=== PATIENT | female | born 1985 | race Caucasian/White ===

== ENCOUNTER → 2017-01-27 | Outpatient (CLI) | payer BC ==
--- NOTE | 2017-01-27 12:45 | Diagnostic Imaging Report ---
EXAMINATION: Bilateral breast diagnostic mammogram with a Computer Aided Detection (CAD) system. INDICATION: Nodule in the outer aspect of the right breast. FINDINGS: There are scattered fibroglandular densities. There is an asymmetry along the outer aspect of the right breast which is evaluated with focal compression views and demonstrates spread out of the underlying asymmetry, compatible with summation artifact of parenchyma. Slight asymmetry is also seen near the area of thickening in the lateral periareolar aspect with no definitive underlying lesion. The left breast demonstrates scattered fibroglandular densities with no focal mass. IMPRESSION: Asymmetries near the area of thickening in the lateral periareolar region in the right breast and in the more far lateral aspect are likely related to summation artifact of parenchyma. An ultrasound evaluation is pending. ACR BI-RADS Category 0: Incomplete. (Needs additional imaging evaluation). Result letter will be mailed to the patient. Note: At least 10% of breast cancer is not imaged by mammography. Dictated by: Dictated on workstation # [id number]
--- NOTE | 2017-01-27 14:29 | Diagnostic Imaging Report ---
EXAMINATION: Right breast ultrasound. INDICATION: Lateral periareolar thickening. Asymmetry seen on mammography. FINDINGS: The outer aspect of the right breast demonstrates no underlying abnormality including the palpable area and the entire outer aspect of the right breast and retroareolar region. IMPRESSION: Negative study. The asymmetries seen on mammography appear to be related to summation artifact of parenchyma. Clinical followup is recommended. If symptoms persist, then followup studies in a few months or further evaluation with an MRI could be considered. ACR BI-RADS Category 1: Negative. Dictated by: Dictated on workstation # [id number]
== END ==
LOC: RAD 08:42
PROVIDERS: ATTEND Obstetrics & Gynecology
DX: R92.8 Other abnormal and inconclusive findings on diagnostic imaging of breast (principal)
CPT/HCPCS: 77066

== ENCOUNTER 2017-02-16 05:34 | Outpatient (CLI) | payer BC ==
[~2017-02-16] VITALS: Ht 152.4 cm; Wt 63.5 kg
[2017-02-16] MEDS ORDERED: ELUX75TA PO (11:03)
[2017-02-16] MEDS ORDERED: OMEP20TA33 PO (11:03)
[2017-02-16] MEDS ORDERED: LEVO112T2 PO (11:03)
== END 2017-02-16 11:11 ==
LOC: PREOP 05:34
PROVIDERS: ATTEND Surgery
DX: Z01.818 Encounter for other preprocedural examination (principal); N63 Unspecified lump in breast

== ENCOUNTER 2017-02-20 05:59 | Day surgery (SDC) | payer BC ==
[~2017-02-20] VITALS: Ht 152.4 cm; Wt 63.5 kg
[~2017-02-20 05:59] MED LIST: ELUX75TA PO; LEVO112T2 PO; OMEP20TA33 PO
[2017-02-20] MEDS ORDERED: MIDAZOLAM 2 MG/2 ML (VERSED) VIAL IV ONE ×2 (06:46→07:00)
[2017-02-20] MEDS ORDERED: LACTATED RINGERS 1,000 ML IV PRN (06:46)
[2017-02-20] MEDS ORDERED: proPOfol 200 MG/20 ML (DIPRIVAN) VIAL IV ONE (06:54)
[2017-02-20] MEDS ORDERED: ONDANSETRON 4 MG/2 ML (SDV) Z0FRAN ONE (06:54)
[2017-02-20] MEDS ORDERED: LACTATED RINGERS 1,000 ML IV ONE (06:54)
[2017-02-20] MEDS ORDERED: LIDOCAINE PF 2% 10 ML (XYLOCAINE) AMP ONE (06:54)
[2017-02-20] MEDS ORDERED: ROCURONIUM 50 MG/5 ML (ZEMURON) VIAL IV ONE (06:54)
[2017-02-20] MEDS ORDERED: MIDAZOLAM 2 MG/2 ML (VERSED) VIAL ONE (06:55)
[2017-02-20] MEDS ORDERED: fentaNYL INJECTION 100 MCG/2 ML AMP ONE (06:55)
[2017-02-20] MEDS ORDERED: FAMOTIDINE 20MG/2ML IV (PEPCID) IV ONE (07:00)
[2017-02-20] MEDS ORDERED: ceFAZolin 1 GM/NS 50 ML IVPB IV ONE ×2 (07:00)
[2017-02-20] MEDS ORDERED: BUP/EPI 0.25% 1:200,000 (MARCAINE) 30 ML VIAL ONE (07:16)
[2017-02-20 07:30] VITALS: BP 112/84
--- NOTE | 2017-02-20 07:51 | Progress Note-Pre Operative ---
Pre-Operative Progress Note H&P Reviewed The H&P was reviewed, patient examined and no changes noted. Date H&P Reviewed: February 20, 2017 Time H&P Reviewed: 07:51 Pre-Operative Diagnosis: Lump-Right breast JANELL OBRIEN MD February 20, 2017 7:51 am
[2017-02-20] MEDS ORDERED: SEVOFLURANE (ULTANE) 15 ML INHAL SOLN ONE (08:16)
--- NOTE | 2017-02-20 08:22 | Progress Note-Post Operative ---
Post-Operative Progess Note Surgeon (s)/Family Medicine Resident (s) Surgeon JANELL OBRIEN MD Family Medicine Resident: Not applicable Pre-Operative Diagnosis Lump-Right breast Post-Operative Diagnosis Same Procedure & Operative Findings Date of Procedure 02/20/17 Procedure Performed/Findings Excision Anesthesia Type Gen. Estimated Blood Loss Estimated blood loss (mL): Minimal Specimens/Packing Specimens Removed Lump JANELL OBRIEN MD February 20, 2017 8:22 am
[2017-02-20] MEDS ORDERED: TRAM50TA2 PO (08:23)
--- NOTE | 2017-02-20 08:24 | Discharge Inst-Simple/Standard ---
Discharge Inst-Standard Discharge Medications New, Converted or Re-Newed RX: RX on Chart Patient Instructions/Follow Up Plan of Care/Instructions/FU: Band-Aid off in 48 hours. Follow-up when necessary. We will call with pathology reports Activity as Tolerated: Yes Discharge Diet: No Restrictions JANELL OBRIEN MD February 20, 2017 8:24 am
[2017-02-20] MEDS ORDERED: morphine INJ 10 MG/ML 1ML (SYR OR VIAL) IVP PRN (08:45)
[2017-02-20] MEDS ORDERED: ONDANSETRON 4 MG/2 ML (SDV) Z0FRAN IVP PRN (08:45)
[2017-02-20] MEDS ORDERED: HYDROmorphone (DILAUDID) 2 MG/ML VIAL IVP PRN (08:45)
[2017-02-20 09:15] VITALS: BP 93/79
[2017-02-20 09:45] VITALS: BP 97/72
[2017-02-20 10:15] VITALS: BP 102/70
[2017-02-20] MEDS ORDERED: HYDR-3812 PO (10:50)
--- NOTE | 2017-02-20 12:55 | OPERATIVE REPORT ---
DATE OF SERVICE: 02/20/2017 PREOPERATIVE DIAGNOSIS: A 1 cm lump, right breast. POSTOPERATIVE DIAGNOSIS: A 1 cm lump, right breast. OPERATION: Simple excision. SURGEON: Janell Obrien MD ANESTHESIA: General. BLOOD LOSS: Minimal. FLUIDS: 1200 mL of crystalloid. TYPE OF WOUND: Type I (clean wound). INDICATION FOR PROCEDURE: This lady presented with a palpable lump, about 1 cm in size, deep to the lateral aspect of the right areola. Imaging studies were negative for any sinister lesion. She was offered simple excision for reassurance. Informed consent was obtained after reviewing the procedure in detail. DESCRIPTION OF PROCEDURE: The patient was placed on the operating table and general anesthesia induced using a laryngeal mask via airway. One gram of Ancef was administered intravenously as prophylaxis against wound infection. Sequential compression devices were placed around her legs, to minimize the occurrence of thrombus. The right breast was prepared and draped in the usual sterile manner. A 1.5 cm incision was made over the right areola along the lateral side and the lump, which had the appearance of a sebaceous cyst, excised intact. Hemostasis was achieved using cautery and the incision closed using 4-0 Vicryl, in a subcuticular fashion. Steri-Strips were applied. She tolerated the procedure well, was extubated in the operating room and taken to the recovery room in stable condition. [place], sponges and instruments were correct at the end of the operation. Job ID: [id number] DocumentID: [id number] Dictated Date: 02/20/2017 08:18:50 Machine Clerical Verifier Date: 02/20/2017 12:54:56 Dictated By: JANELL OBRIEN MD [facility]
== END 2017-02-20 10:55 | disposition home or self-care (01) ==
LOC: SDC 05:59
PROVIDERS: ATTEND Surgery
DX: N60.01 Solitary cyst of right breast (principal); F17.210 Nicotine dependence, cigarettes, uncomplicated
CPT/HCPCS: 84703; 87081